=== PATIENT | male | born 1970 | race Asian ===

== ENCOUNTER → 2017-11-02 | Outpatient (CLI) | payer OTHER | END | disposition home or self-care (01) | LOC: CA 12:30 | DX: R94.31 Abnormal electrocardiogram [ECG] [EKG] (principal) ==

== ENCOUNTER → 2019-10-31 | Outpatient (CLI) | payer OTHER ==
[2019-10-31 11:12] LABS: ALBUMIN 3.8 g/dL (3.4-5.0); ALKALINE PHOSPHATASE 58 U/L (46-116); ALT/SGPT 38 U/L (16-63); AST/SGOT 14 U/L (15-37); BILIRUBIN TOTAL 0.4 mg/dL (0.20-1.00); HDL CHOLESTEROL 54 mg/dL (40-60); TRIGLYCERIDES 94 mg/dL (<150)
[2019-10-31 11:17] LABS: CHOLESTEROL 237 mg/dL (<200); CHOLESTEROL/HDL RATIO 4.4
[2019-10-31 11:21] LABS: BASOPHIL % 0.4 % (0-2); PLATELET COUNT 300 x10^3mcL (130-400); RED CELL DISTRIBUTION WIDTH 13.2 % (11.5-14.5)
[2019-10-31 11:38] LABS: BILIRUBIN DIRECT < 0.05 mg/dL (0.0-0.2)
== END | disposition home or self-care (01) ==
LOC: LB 10:10
DX: E78.5 Hyperlipidemia, unspecified (principal); Z12.5 Encounter for screening for malignant neoplasm of prostate
CPT/HCPCS: 84153

== ENCOUNTER 2019-11-07 06:13 | Day surgery (SDC) | payer OTHER ==
[~2019-11-07] VITALS: Ht 165.1 cm; Wt 77.1 kg
[2019-11-07 06:26] VITALS: BP 135/92
[2019-11-07 09:42] VITALS: BP 103/73
== END 2019-11-07 09:25 | disposition home or self-care (01) ==
LOC: DS 06:13 → GI 07:00 → OR 07:00 → DS 09:25
DX: K21.0 Gastro-esophageal reflux disease with esophagitis (principal); K29.50 Unspecified chronic gastritis without bleeding; B96.81 Helicobacter pylori [H. pylori] as the cause of diseases classified elsewhere; K31.7 Polyp of stomach and duodenum; I10 Essential (primary) hypertension; E78.5 Hyperlipidemia, unspecified; Z80.1 Family history of malignant neoplasm of trachea, bronchus and lung; Z79.899 Other long term (current) drug therapy
CPT/HCPCS: 43235; J1200; J1610; J2250; J2310; J3010; J3490